=== PATIENT | female | born 2000 | race Caucasian/White ===

== ENCOUNTER 2022-10-25 17:33 | Emergency (ER) | payer MEDICAID ==
[~2022-10-25] VITALS: Ht 157.5 cm; Wt 88.9 kg
[2022-10-25 17:39] VITALS: BP_SYST 144; PULSE 97; RESP 18; TEMP 98; O2SAT 99
[2022-10-25] MEDS ORDERED: AMOX500C2 PO (17:49)
[2022-10-25] MEDS ORDERED: ACET-2634 PO (17:49)
== END 2022-10-25 18:10 | disposition home or self-care (01) ==
LOC: SED 17:33
DX: J02.9 Acute pharyngitis, unspecified (principal); R50.9 Fever, unspecified; Z79.899 Other long term (current) drug therapy
CPT/HCPCS: 99283

== ENCOUNTER 2023-06-21 17:35 | Emergency (ER) | payer MEDICAID, OTHER ==
[~2023-06-21] VITALS: Ht 157.5 cm; Wt 72.6 kg
[~2023-06-21 17:35] MED LIST: ACET-2634 PO; AMOX500C2 PO
[2023-06-21 18:57] VITALS: BP_SYST 120; PULSE 79; RESP 18; TEMP 97.6; O2SAT 99
[2023-06-21 19:33] LABS: COVID19 ANTIGEN SOFIA FIA NEGATIVE (NEGATIVE)
[2023-06-21 19:36] LABS: INFLUENZA TYPE A Negative (NEGATIVE); INFLUENZA TYPE B NEGATIVE (NEGATIVE)
[2023-06-21 22:49] VITALS: BP_SYST 136; PULSE 80; RESP 18; TEMP 97.6; O2SAT 99
[2023-06-21] MEDS ORDERED: METH-776 PO (22:51)
[2023-06-21] MEDS ORDERED: AUG875 PO (22:51)
== END 2023-06-21 22:50 | disposition home or self-care (01) ==
LOC: SED 17:35
DX: J20.9 Acute bronchitis, unspecified (principal); Z20.822 Contact with and (suspected) exposure to COVID-19; Z79.899 Other long term (current) drug therapy; Z79.2 Long term (current) use of antibiotics
CPT/HCPCS: 36415; 99283